=== PATIENT | male | born 1955 | race Hispanic/Latino ===

== ENCOUNTER → 2019-07-21 | Outpatient (CLI) | payer OTHER ==
[~2019-07-21] MED LIST: AMLO5TAB9 PO; ASPI-555 PO; CYAN250014 PO; ESOM40CA PO; FAMO20TA8 PO; FENT1PAT61 TD; HYDR-4064 PO; METF-444 PO; NAPR-1023 PO; RAMI5CAP66 PO; ROSU10TA22 PO; SUCR1TAB2 PO
--- NOTE | 2019-07-21 11:00 | NUR ---
MBSS COMPLETED. DEEP NON-TRANSIENT PENETRATION WITH NECTAR-THICK LIQUIDS. RECOMMEND MECHANICAL SOFT/CHOPPED, THIN LIQUIDS; PILLS CRUSHED WITH LIQUID OR PUREED. RECOMMENDATIONS: 1. CHANGE IN TEXTURE TO ABOVE STATED *WET SOLIDS *ALTERNATE BITES AND SIPS *AVOID DRY SOLIDS *AVOID THICK TEXTURES REFRIGERATION PLANT OPERATOR PROVIDED RESULTS AND RECOMMENDATIONS VIA WRITTEN MODALITY. ALL QUESTIONS WERE ANSWERED AT THIS TIME. RISKS AND CONSEQUENCES OF ASPIRATION. HE VERBALIZED UNDERSTANDING AND COMPLIANCE WITH RECOMMENDATIONS. Addendum: 07/21/19 at 1419 by BRAYDON ZIEGLER [facility] Amended: Links added.
== END | disposition home or self-care (01) ==
LOC: RAH 10:01
PROVIDERS: ATTEND Internal Medicine
DX: R13.13 Dysphagia, pharyngeal phase (principal); K21.9 Gastro-esophageal reflux disease without esophagitis; Z86.010 Personal history of colon polyps
CPT/HCPCS: 74230; 92611